=== PATIENT | male | born 1990 | race Caucasian/White ===

== ENCOUNTER 2021-01-30 16:03 | Emergency (ER) | payer OTHER, SELFPAY ==
--- NOTE | ~2021-01-30 | XR_ITS ---
EXAMINATION: XR CHEST CLINICAL INFORMATION: SOB. COMPARISON: None TECHNIQUE: Frontal view of the chest was obtained. FINDINGS: No significant abnormality is noted involving the heart, lungs, mediastinum, bony thorax or soft tissues. XR/XR chest 1V IMPRESSION: Unremarkable chest examination.
[2021-01-30 16:11] VITALS: BP 133/75; PULSE 103; RESP 26; TEMP 37.1; O2SAT 97; BMI 29.8
[2021-01-30] MEDS: Albuterol/Iprat 2.5/0.5MG 3 ML AMPUL.NEB INHALE (16:30)
[2021-01-30 16:32] VITALS: PULSE 104; O2SAT 95
--- NOTE | 2021-01-30 17:02 | PC.NURSE ---
covid swab completed at this time. patient in nad.
--- NOTE | 2021-01-30 17:23 | ED_ITS ---
HPI - URI/Sore Throat General Chief Complaint: Asthma Stated Complaint: Asthma Time Seen by Provider: 01/30/21 16:21 Source: patient Mode of arrival: ambulatory Limitations: no limitations History of Present Illness HPI Narrative: Pleasant 30-year-old male who reports he has history of asthma has been experiencing intermittent exacerbation for over past 4 weeks now and over the past 2 weeks he ran out of his inhaler and has had a dry cough which has continued. States there is no fever however coughing causes significant discomfort and comes in fits with associated dyspnea during episodes however there is no chest pain or shortness of breath on exertion. No lower extremity swelling. No recent travel or known sick contacts. MD elicited complaint: cough Onset (ago): week(s) Consistency: intermittent Severity: moderate Relieving factors: other (Used his 's inhaler helps) Associated symptoms: denies other symptoms Treatments prior to arrival: none Related Data Previous Rx's Medication Instructions Recorded albuterol sulfate 2 puff INHALATION Q4-6H PRN #8.5 g 01/30/21 azithromycin [Zithromax Z-Jonas] 250 mg PO DAILY 5 Days #6 tab 01/30/21 prednisone 60 mg PO DAILY 5 Days #15 tab 01/30/21 Allergies Allergy/AdvReac Type Severity Reaction Status Date / Time albuterol Allergy Unknown RASH Verified 01/30/21 16:07 [From PROVENTIL HFA] brompheniramine Allergy Unknown RASH Verified 01/30/21 16:07 [From DIMETAPP COLD-ALLERGY (PE)] phenylephrine Allergy Unknown RASH Verified 01/30/21 16:07 [From DIMETAPP COLD-ALLERGY (PE)] Review of Systems Review of Systems: Constitutional: No Weight loss, No Fever, No Chills, No Night Sweats, No Fatigue, No Malaise ENT/Mouth: No Hearing loss, No Ear Pain, No Nasal Congestion, No Sinus Pain, No Hoarseness, No sore throat, No Rhinorrhea, No Swallowing Difficulty Eyes: No Eye Pain, No Swelling, No Redness, No Foreign Body, No Discharge, No Vision Changes Cardiovascular: No Chest Pain, No SOB, No Dyspnea on Exertion, No Orthopnea, No Edema, No Palpitations Respiratory: + Cough, No Sputum, + Wheezing, No Dyspnea Gastrointestinal: No Nausea, No Vomiting, No Diarrhea, No Constipation, No abdominal Pain, No Hematochezia, No Melena Genitourinary: No Dysuria, No Urinary Frequency, No Hematuria, No Urinary Incontinence, No Urgency, No Flank Pain, No Urinary Flow Changes, No Hesitancy Musculoskeletal: No joint pain, No Myalgias, No Joint Swelling Skin: No Skin Lesions, No rash Neuro: No Weakness, No Numbness, No Paresthesias, No Loss of Consciousness, No Dizziness, No Headache Psych: No Social Issues Heme/Lymph: No Bruising, No Bleeding,No Lymphadenopathy Endocrine: No Polyuria, No Polydipsia, No Temperature Intolerance Yes all other systems are reviewed and are negative [facility] Past Medical History Medical History Asthma Social History Social History Advance Directives: No Advance Directives Information Provided: No Physical Exam Vital Signs: Vital Signs: Last Vital Signs Temp 98.7 F 01/30/21 16:11 Pulse 104 H 01/30/21 16:32 Resp 26 H 01/30/21 16:11 BP 133/75 01/30/21 16:11 Pulse Ox 97 01/30/21 16:11 Body Mass Index 29.8 Reviewed Const: General: cooperative and healthy appearing; No acute distress or int oxicated appearing Nutritional Appearance: average body habitus Orientation/consciousness: patient oriented x3 HENMT: Head: Yes normal to inspection Ears: hearing grossly normal bilaterally Eyes: General: appearance normal, both eyes and all related structures Visual Roberto: normal visual roberto by confrontation Neck: Neck: Yes normal visual inspection, No positive Brudzinski's sign, No positive Kernig's sign and No tender Thyroid: Thyroid normal Chest: Chest palpation & inspection: normal inspection of the chest Resp: Effort & Inspection: normal respiratory effort Auscultation: wheezes expiratory wheezes (mild forced bilateral ) and upper bilaterally Cardio: Jugular venous distension: no JVD Rhythm: regular rhythm Heart sounds: S1 normal heart sound present and S2 normal heart sound present GI: Palpation (GI): Soft to palpation : General: Yes no CVA tenderness Back/Spine/Pelvis: Back: no CVA tenderness Skin: General skin exam: no rashes or lesions noted Neuro: General: patient oriented x3 Extrem: General: Yes normal to inspection Course Course Course Narrative: Feels better after neb/ cxr neg , influ, rsv, covid. VSS, 100% ra MDM - URI/Sore Throat Differential Diagnosis Differential diagnosis: Likely upper respiratory infection, viral infection and bronchitis; Unlikely croup, otitis media, sinusitis, influenza and pharyngitis Medical Records Attestation: I reviewed the patient's medical records. Lab Data Attestation: I reviewed the patient's lab results. Labs: Lab Results 01/30/21 Range/Units 16:57 Coronavirus (PCR) NEGATIVE (Negative) Influenza Type A (PCR) NEGATIVE (Negative) Influenza Type B (PCR) NEGATIVE (Negative) RSV RNA Qual (PCR) NEGATIVE (Negative) Imaging Data Chest x-ray: Radiologist's impression: [address] [id number] ReportSigned Patient: Trevor Foster#: [id number]: 1990Acct:[id number]/Sex: MADM Date: 01/30/21Loc: EDAttending Dr: Ordering Physician: Lee Pimentel NP Date of Service: 01/30/21 Procedure(s): XR chest 1V Accession Number(s): [id number] cc: Lee Pimentel PLANT SCIENCES PROFESSOR~ EXAMINATION: XR CHEST CLINICAL INFORMATION: SOB. COMPARISON: None TECHNIQUE: Frontal view of the chest was obtained. FINDINGS: No significant abnormality is noted involving the heart, lungs, mediastinum, bony thorax or soft tissues. XR/XR chest 1V IMPRESSION: Unremarkable chest examination. Dictated By:OLGA CORDERO MDSigned By:<Electronically signed by OLGA COREDRO MD in OV>01/30/21 1647 DD/ 1621TD/TT: General Maintenance Engineer: [facility] [place] Discharge Plan Discharge Clinical Impression: Bronchitis Patient Disposition: Home, Self-Care Instructions: Acute Bronchitis (ED) Additional Instructions: Drink plenty fluids Supportive care discussed Take medication prescribed Return if any concerns or worsening symptoms Follow up with her primary care doctor 1 week Today your COVID test was negative, flu test was negative, RSV test was negative Follow-up as instructed Thank you Prescriptions: New azithromycin [Zithromax Z-Jonas] 250 mg tablet 250 mg PO DAILY 5 Days Qty: 6 RF: 0 prednisone 20 mg tablet 60 mg PO DAILY 5 Days Qty: 15 RF: 0 albuterol sulfate 90 mcg/actuation HFA aerosol inhaler 2 puff inhalation Q4-6H PRN (Reason: shortness of breath or wheezing) Qty: 8.5 RF: 0 Referrals: ED Physician,Generic [Physician] - 1 week Discharge Date/Time: 01/30/21 18:36
[2021-01-30 17:55] LABS: Influenza A PCR NEGATIVE (Negative); Influenza B PCR NEGATIVE (Negative); Resp Syncy Virus RNA Qual PCR NEGATIVE (Negative); SARS COV2 PCR INHOUSE NEGATIVE (Negative)
== END 2021-01-30 18:36 | disposition home or self-care (01) ==
PROVIDERS: Nurse Practitioner Primary Care; Emergency Provider Emergency Medicine
DX: J20.9 Acute bronchitis, unspecified (principal); Z20.822 Contact with and (suspected) exposure to COVID-19; J45.909 Unspecified asthma, uncomplicated
CPT/HCPCS: 0241U; 36415; 71045; 94640; 99283; 99284

== ENCOUNTER 2022-03-02 18:09 | Emergency (ER) | payer OTHER, SELFPAY ==
--- NOTE | ~2022-03-02 | XR_ITS ---
EXAMINATION: XR KNEE, RIGHT CLINICAL INFORMATION: Pain and injury. COMPARISON: None TECHNIQUE: Four views of the right knee. FINDINGS: Bones and soft tissues are normal. No fracture or joint effusion. Alignment is anatomic. Joint spaces are well maintained. No abnormal soft tissue calcification. XR/XR knee RT 4V IMPRESSION: Normal right knee.
--- NOTE | ~2022-03-02 | XR_ITS ---
EXAMINATION: XR KNEE, LEFT CLINICAL INFORMATION: Pain. Injury. COMPARISON: None TECHNIQUE: Four views of the left knee. FINDINGS: Bones and soft tissues are normal. No fracture or joint effusion. Alignment is anatomic. Joint spaces are well maintained. No abnormal soft tissue calcification. XR/XR knee LT 4V IMPRESSION: Normal left knee.
--- NOTE | ~2022-03-02 | XR_ITS ---
EXAMINATION: XR HIP, RIGHT CLINICAL INFORMATION: Pain and injury. COMPARISON: None TECHNIQUE: Frontal view of pelvis. Two views of the right hip. FINDINGS: Bones and soft tissues are normal. No fracture. Alignment is anatomic. Hip joint space is maintained. XR/XR hip RT w PEL1V IMPRESSION: Normal right hip.
[2022-03-02 20:44] VITALS: BP 134/91; PULSE 87; RESP 16; TEMP 37.1; O2SAT 98; BMI 29.8
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
[2022-03-02] MEDS: oxyCODONE HCl Immed Release 5 MG TABLET PO (21:47)
== END 2022-03-02 22:43 | disposition home or self-care (01) ==
PROVIDERS: Emergency Provider Emergency Medicine Emergency Medical Services
DX: Z04.1 Encounter for examination and observation following transport accident (principal); M25.561 Pain in right knee; M25.551 Pain in right hip
CPT/HCPCS: 73502; 73564; 99283; 99284

== ENCOUNTER → 2022-03-28 15:24 | Outpatient (BNVA) | payer OTHER, SELFPAY | PROVIDERS: PCP Student in an Organized Health Care Education/Training Program; Visit Provider Physician Assistant | DX: S83.511A Sprain of anterior cruciate ligament of right knee, initial encounter (principal); S83.241A Other tear of medial meniscus, current injury, right knee, initial encounter | CPT/HCPCS: 99202 ==

== ENCOUNTER 2022-04-11 18:41 | Outpatient (REF) | payer OTHER, SELFPAY ==
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
== END 2022-04-11 18:42 | disposition home or self-care (01) ==
LOC: HO.MRI 18:41
PROVIDERS: Visit Provider Physician Assistant
DX: S83.511A Sprain of anterior cruciate ligament of right knee, initial encounter (principal); S83.241A Other tear of medial meniscus, current injury, right knee, initial encounter; X58.XXXA Exposure to other specified factors, initial encounter; Y93.9 Activity, unspecified; Y92.9 Unspecified place or not applicable; Y99.9 Unspecified external cause status
CPT/HCPCS: 73721

== ENCOUNTER → 2022-04-19 11:03 | Outpatient (BNVA) | payer OTHER, SELFPAY | PROVIDERS: PCP Student in an Organized Health Care Education/Training Program; Visit Provider Orthopaedic Surgery | DX: S83.249D Other tear of medial meniscus, current injury, unspecified knee, subsequent encounter (principal); S83.511D Sprain of anterior cruciate ligament of right knee, subsequent encounter | CPT/HCPCS: 99212 ==

== ENCOUNTER 2022-04-25 10:01 | Day surgery (SDC) | payer OTHER, SELFPAY ==
--- NOTE | 2022-04-24 08:10 | HO.ANESPROP2 ---
Documented by User: Zita Bob NP 04/24/22 08:11 HPI - Anesthesia Eval Consult details Narrative: 31yo M for Right ACL Allograft [facility] Active Problems Active Problems: All Active Problems (Updated 03/28/22 @ 15:57 by Yashira Roblero PA-C) Tear of medial meniscus of knee (Acute) Complete tear of right ACL (Acute) Past Medical History Medical History Asthma Social History Social History (Updated 03/28/22 @ 15:35 by NIMISHA Hollis) Patient Tobacco Use Status: Former Tobacco user Advance Directives: No Advance Directives Information Provided: Yes Current occupational status: employed Current occupation: fork charter driver/ rt hand Meds Allergies Allergy/AdvReac Type Severity Reaction Status Date / Time albuterol Allergy Unknown RASH Verified 03/28/22 15:33 [From PROVENTIL HFA] brompheniramine Allergy Unknown RASH Verified 03/28/22 15:33 [From DIMETAPP COLD-ALLERGY (PE)] phenylephrine Allergy Unknown RASH Verified 03/28/22 15:33 [From DIMETAPP COLD-ALLERGY (PE)] Exam Exam Date and Time: April 24, 2022 0810 Assessment and Plan Assessment Anesthesia Assessment: Chart Reviewed Documented by User: Rachid Patterson MD 04/25/22 17:49 [facility] Past Medical History Medical History Asthma Family History Family history of problems with anesthesia: No Surgical History History of Problems with Anesthesia: No Social History Social History (Updated 03/28/22 @ 15:35 by NIMISHA Hollis) Patient Tobacco Use Status: Former Tobacco user Advance Directives: No Advance Directives Information Provided: Yes Current occupational status: employed Current occupation: fork charter driver/ rt hand Meds Allergies Allergy/AdvReac Type Severity Reaction Status Date / Time albuterol Allergy Unknown RASH Verified 03/28/22 15:33 [From PROVENTIL HFA] brompheniramine Allergy Unknown RASH Verified 03/28/22 15:33 [From DIMETAPP COLD-ALLERGY (PE)] phenylephrine Allergy Unknown RASH Verified 03/28/22 15:33 [From DIMETAPP COLD-ALLERGY (PE)] Exam Airway Mallampati Class: III TM Dist: >3cm Neck ROM: Full Loose/Missing/Broken Teeth: Yes (Chipped teeth ) Heart: S1 , S2 Lungs: b/l breath sounds Assessment and Plan Assessment Anesthesia Assessment: Anesthesia Plan Discussed Final Anesthetic Review Family History of Problems with Anesthesia: No History of Problems with Anesthesia: No NPO: Yes ASA Class: II Final Preanesthetic Review: Meds/Allgs Chart Reviewed, Consent Obtained/Reviewed and Anes Risks/Benef Reviewed Patient Risk: Intermediate Procedure Risk: Intermediate Anesthetic Plan Anesthetic Plan: GA and Regional Block Disposition: Standard PACU
[2022-04-25] VITALS (8 sets, daily range): BP systolic 125–147; BP diastolic 79–94; PULSE 72–93; RESP 16–19; TEMP 36.2–36.7; O2SAT 93–98; BMI 29.8
[2022-04-25] MEDS: Lactated Ringers 1,000 ML 100 ML IVCONT (10:57)
--- NOTE | 2022-04-25 13:57 | MHC.SHP ---
Pre-Procedural Eval Section A Date of Service: 04/25/22 The patient is an INPATIENT: No Changes since office visit: Yes Patient answered all questions; No Cold of Flu in the past 2 weeks, No New Medical Problems and No Changes in Medication The History & Physical has been completed within 30 days and I have reviewed it.: Yes Section B Chief Complaint: Sprain of anterior cruciate ligament of right knee Allergies: Allergies Allergy/AdvReac Type Severity Reaction Status Date / Time albuterol Allergy Unknown RASH Verified 03/28/22 15:33 [From PROVENTIL HFA] brompheniramine Allergy Unknown RASH Verified 03/28/22 15:33 [From DIMETAPP COLD-ALLERGY (PE)] phenylephrine Allergy Unknown RASH Verified 03/28/22 15:33 [From DIMETAPP COLD-ALLERGY (PE)] Plan I have reviewed the history and physical and performed a pertinent physical examination on my patient. No changes have occurred unless specified.
--- NOTE | 2022-04-25 15:22 | P.BOP_ITS ---
Brief Operative Note Date of Service: 04/25/22 Pre-op diagnosis: Right ACL tear Post-op diagnosis: other (Right ACL tear with medial and lateral meniscus tear) Procedure: Right knee ACL reconstruction with allograft and Partial lateral and medial meniscectomy Surgeon: Seth Emmanuel MD Anesthesia: GETA and regional Was an Gas Station Operator used for this Procedure?: Yes Gas Station Operator: Emmy Erazo Estimated blood loss (mL): 20 Tourniquet time (min): 75 IV fluids (mL): 1,000 Pathology: none sent Condition: stable Disposition: PACU
[2022-04-25] MEDS: Acetaminophen 325 MG TABLET 650 MG PO (16:26)
[2022-04-25] MEDS: oxyCODONE HCl Immed Release 5 MG TABLET PO (16:27)
--- NOTE | 2022-04-27 15:19 | W.PM.OPN ---
Operative Note Operative Note Date of Service: 04/25/22 Narrative: Date of Service: 04/25/22 Pre-op diagnosis: Right ACL tear Post-op diagnosis: other (Right ACL tear with medial and lateral meniscus tear) Procedure: Right knee ACL reconstruction with allograft and Partial lateral and medial meniscectomy Surgeon: Seth Emmanuel MD Anesthesia: GETA and regional Was an Director Child Development Center used for this Procedure?: Yes Director Child Development Center: Emmy Erazo Estimated blood loss (mL): 20 Tourniquet time (min): 75 IV fluids (mL): 1,000 Pathology: none sent Condition: stable Disposition: PACU Indications: This is a 31-year-old gentleman with a full-thickness ACL tear with medial and lateral meniscal tearing was consented to undergo ACL reconstruction. Procedure in detail: Patient was brought to the operating room and placed supine on the surgical table. He was prepped and draped in standard sterile fashion and a time out was called to indentify proper site, proper procedure and IV antibiotics per weight were administered. On exam under anesthesia he had a markedly positive pivot shift. I began by exsanguinating the limb and insufflating tourniquet to 300 mm Hg. Then made a standard anterolateral stab incision. knee was insufflated with water and 30 degree arthroscope was placed. There was grade 1 fibrillations of the patella but overall suprapatellar pouch was plane and the gutters were clean. I descended into the medial compartment where I made my far medial portal under direct visualization. There was obvious old bucket handle tear of the body and posterior horn of the medial meniscus. The bucket-handle itself had been resorbed and what remained was a thin peripheral portion of the meniscus approximately 30% of the meniscal volume. I debrided this down with a shaver. There were no cartilage changes in the medial compartment. There was an empty wall sign in the notch laterally. I examined the lateral compartment. There was a longitudinal split tear in the body of the lateral meniscus without instability. I debrided these flaps down to stable edges. This tear was chronic as well and I removed approximately 30% of the meniscal volume laterally. There were no cartilage changes in the lateral compartment. I then returned to the not tried performed a notchplasty and removed the remaining fibers of the ACL and meniscal fragments. Once this was done I drilled my femoral tunnel using a 7 mm guide off the posterior wall and via the far medial portal. I measured a depth of 35 mm and drilled a femoral tunnel of 25 using a 10 mm Reamer and the final 10 with a 4.5 mm drill. The allograft was opened and prepared on the back table at this time. I then selected an anatomic tibial tunnel and using a 55 mm tibial drill while in flexion drilled the tibial tunnel after making a small incision just medial to the tibial tubercle. Once the graft was repaired on the back table I pulled this through the tibia and then the femur using free suture. I then flipped the button on the femoral cortex and cycled the knee a dozen times. Then while in hyper extension and while applying traction to the graft and posterior pressure to the tibial tubercle I placed 1 10 milimeter interference screw into the tibial tunnel. I then examined the graft. I had good low graft position and there was no pivot shift on examination. There was no impingement. I then removed all extraneous instrumentation. Cut my sutures and irrigated copiously. Absorbable suture and skin glue were then used to close the wounds and the patient was placed in a hinged knee brace with 0-15 degrees of motion. He was then extubated and brought recovery room stable condition. There were no known complications.
== END 2022-04-25 18:18 | disposition home or self-care (01) ==
LOC: HO.SSS 10:02
PROVIDERS: Visit Provider Orthopaedic Surgery
PROC: (CPT 27428; principal; 2022-04-25 12:20)
DX: S83.511A Sprain of anterior cruciate ligament of right knee, initial encounter (principal); S83.231A Complex tear of medial meniscus, current injury, right knee, initial encounter; S83.281A Other tear of lateral meniscus, current injury, right knee, initial encounter; V89.2XXA Person injured in unspecified motor-vehicle accident, traffic, initial encounter; Y93.89 Activity, other specified; Y92.9 Unspecified place or not applicable; Y99.8 Other external cause status; J45.909 Unspecified asthma, uncomplicated; Z79.899 Other long term (current) drug therapy; Z87.891 Personal history of nicotine dependence; Z88.8 Allergy status to other drugs, medicaments and biological substances
CPT/HCPCS: 29880; 29888; C1713; C1769; J0171; J0690; J1100; J1170; J2250; J2405; J2795; J3010

== ENCOUNTER 2022-05-03 07:13 | Outpatient (RCR) | payer OTHER, SELFPAY | END 2022-07-06 09:03 | disposition home or self-care (01) | LOC: HO.PT 07:13 | PROVIDERS: Visit Provider Physician Assistant | DX: S83.511A Sprain of anterior cruciate ligament of right knee, initial encounter (principal); Z98.890 Other specified postprocedural states ==

== ENCOUNTER → 2022-05-03 15:34 | Outpatient (BNVA) | payer OTHER, SELFPAY | PROVIDERS: Visit Provider Physician Assistant | DX: S83.241A Other tear of medial meniscus, current injury, right knee, initial encounter (principal); S83.511A Sprain of anterior cruciate ligament of right knee, initial encounter | CPT/HCPCS: 99212 ==

== ENCOUNTER 2022-06-19 11:00 | Outpatient (RCR) | payer OTHER, SELFPAY ==
--- NOTE | 2022-05-14 11:51 | MHC.PT.EP ---
[facility] [place] Office [employer] Office [place] Office [address] Keyur Wilder [address] [phone] F: [phone] F: [phone] F: [phone] F: [phone] Physical Therapy Plan of Care Date of Evaluation: Date of Surgery: 04/25/22 Diagnosis: R ACL allograft repair and partial medial and lateral meniscectomy on 04/25 ([facility]) Assessment: pt presents to physical therapy with pain, decreased range of motion, decreased strength, impaired functional mobility, impaired postural awareness, and gait deviations. pt is a good candidate for skilled PT due to age, potential remediation of impairments, typical disease/condition progression and prognosis, comorbidities, and motivation. pt would benefit from tailored strengthening and stretching exercise program, functional training, gait training, postural re-training, neuromuscular re-education, modalities as needed for pain, equipment safety demonstration. Frequency and Duration: The patient will be seen 2x/wk for 10 wks Short Term Goals: pt will be I w/ HEP to promote self-management of condition. pt will improve R knee extension to 0 degrees to remediate gait impairments on even ground. pt will improve R knee quad strength to at least 4-/5 to assist in stair navigation. Chest Painting And Sealing Supervisor Goals: pt will report a statistically significant improvement in self-reported outcome measure, LEFI, to promote return to PLOF. pt will demo proper squat mechanics w/ no verbal cueing to promote neutral knee w/ picking up objects from floor. Treatment Plan: Modalities to reduce pain, spasms and effusion. Manual therapy to restore motion and function. Therapeutic exercise to improve strength and flexibility. Neuromuscular re-education for posture and balance. Therapeutic activities to return to functional activities of daily living. Electronically signed by: Fabiola Bo PT, DPT Please sign and return to therapist. Thank you for your referral.
--- NOTE | 2022-07-05 12:52 | MHC.PT.DC ---
[facility] [place] Office [place] Office [place] Office [address] Keyur Wilder 140 [facility] [phone] F: [phone] F: [phone] F: [phone] F: [phone] Physical Therapy Discharge Report Diagnosis: R ACL allograft repair and partial medial and lateral meniscectomy on 04/25 (RC) Date of Surgery: 04/25/22 Date of Evaluation: 05/14/22 Date of Discharge: 07/05/22 Treatments to Date: 10 Cancellations to Date: 1 No Shows to Date: 6 Discharge Status: Visit Non-compliance Discharge Summary: The patient has no showed a total of 6 visits. Per [facility] Core Therapy policy he is being discharged for visit non-compliance. Per last treatment note: Pt chandrakant increased dynamic/balance activities w/o px and N sstability demonstrated . No px w/Eliptical x 15 min. Electronically signed by: Fabiola Bo PT, DPT Please sign and return to therapist. Thank you for your referral.
== END 2022-07-05 12:53 | disposition home or self-care (01) ==
LOC: HO.PT 11:00
PROVIDERS: Visit Provider Physician Assistant
DX: S83.511A Sprain of anterior cruciate ligament of right knee, initial encounter (principal); S83.241A Other tear of medial meniscus, current injury, right knee, initial encounter
CPT/HCPCS: 97110; 97150; 97162; 97530

== ENCOUNTER 2022-06-28 13:33 | Emergency (ER) | payer OTHER, SELFPAY ==
[2022-06-28 14:35] VITALS: BP 128/83; PULSE 87; RESP 18; TEMP 37; O2SAT 96; BMI 32.3
--- NOTE | 2022-06-28 16:18 | ED_ITS ---
HPI - General Adult General Chief complaint: Eye Problems Stated complaint: r eye swollen red l eye itchy Time Seen by Provider: 06/28/22 16:11 Source: patient Mode of arrival: ambulatory Limitations: no limitations History of Present Illness HPI narrative: 31-year-old male presents to ED for bilateral red eyes with green discharge. Patient states 2 of his nephews had pinkeye with green discharge and now he is h aving symptoms. Patient denies any change in vision, eye pain, recent trauma to the eyes. Patient denies any contact use. Related Data Previous Rx's Medication Instructions Recorded ibuprofen 800 mg tablet 800 mg PO TID PRN pain 1 month #90 04/25/22 tabs oxycodone-acetaminophen 5 mg-325 1 tab PO Q4-6H PRN pain 7 days #42 04/25/22 mg tablet (Percocet) tabs sulfamethoxazole 800 1 tab PO BID 7 days #14 tabs 05/28/22 mg-trimethoprim 160 mg tablet (Bactrim DS) erythromycin 5 mg/gram (0.5 %) eye 0.5 inch ophthalmic (eye) QID 7 06/28/22 ointment days #3.5 grams Allergies Allergy/AdvReac Type Severity Reaction Status Date / Time albuterol Allergy Unknown RASH Verified 06/28/22 14:35 [From PROVENTIL HFA] brompheniramine Allergy Unknown RASH Verified 06/28/22 14:35 [From DIMETAPP COLD-ALLERGY (PE)] phenylephrine Allergy Unknown RASH Verified 06/28/22 14:35 [From DIMETAPP COLD-ALLERGY (PE)] Review of Systems Review of Systems: Red eyes, tearing, with green discharge Yes all other systems are reviewed and are negative [facility] Past Medical History Medical History Asthma Social History Social History Patient Tobacco Use Status: Former Tobacco user Advance Directives: No Advance Directives Information Provided: No Current occupational status: previously employed Current occupation: fork fork lift technician/ rt hand Physical Exam ED Vital Signs: Vital Signs - 24 hr 06/28/22 14:35 Temperature 98.6 F Pulse Rate 87 Respiratory Rate 18 Blood Pressure 128/83 Pulse Oximetry 96 Oxygen Delivery Method Room Air BMI result Body Mass Index 32.3 Const General: cooperative, healthy appearing, comfortable, no acute distress, well developed, alert, awake and Physically active Orientation/consciousness: patient oriented x3 [facility] Head: Yes normal to inspection, Yes No palpable skull fracture present, Yes normocephalic, Yes atraumatic and No abrasion Eyes Other: Bilateral eyes with conjunctival/scleral erythema with green discharge. Negative for photophobia or nystagmus. Negative for globe tenderness. Negative for abrasions. Both eyes visual acuity is 20/20 Neck Neck: Yes normal visual inspection, Yes full ROM, Yes no lymphadenopathy, Yes no meningeal signs, Yes trachea midline, Yes supple, No anterior neck swelling and No tender Chest Chest palpation & inspection: normal inspection of the chest and normal palpation of entire chest wall Resp Effort & Inspection: normal respiratory effort and able to speak in complete sentences Auscultation: clear to auscultation bilaterally Cardio Jugular venous distension: no JVD Heart sounds: S1 normal heart sound present and S2 normal heart sound present GI Inspection: Yes normal to inspection and No abdominal wall ecchymosis Palpation (GI): Soft to palpation, not firm, nontender, no guarding and not rigid General: No CVA tenderness and Yes no CVA tenderness Back/Spine/Pelvis Back: no CVA tenderness, No CVA tenderness and No back tenderness Skin General skin exam: no rashes or lesions noted and elasticity normal Neuro General: patient oriented x3, gait normal, no meningeal signs and CN's II-XI intact bilaterally Extrem General: Yes normal to inspection and Yes full ROM Psych Appearance: grossly normal, well kempt and not disheveled Course Course Course Narrative: History physical exam indicate bacterial conjunctivitis. Medical Decision Making [facility] Narrative Medical decision making narrative: Bacterial conjunctivitis Discharge Plan Discharge Clinical Impression: Bacterial conjunctivitis Patient Disposition: Home, Self-Care Instructions: Conjunctivitis (ED) Additional Instructions: Return to the ED immediately for loss or change in vision, headache, loss of visions, nausea, vomitting, or any other concerning symptoms. Please follow up with pCP and opthmoatolgist Prescriptions: New erythromycin 5 mg/gram (0.5 %) ointment 0.5 inch ophthalmic (eye) QID 7 Days Qty: 3.5 0RF Rx Instructions: Placed in both eyes No Action oxycodone-acetaminophen [Percocet] 5-325 mg tablet 1 tab PO Q4-6H PRN (Reason: pain) 7 Days Qty: 42 0RF ibuprofen 800 mg tablet 800 mg PO TID PRN (Reason: pain) 30 Days Qty: 90 0RF sulfamethoxazole-trimethoprim [Bactrim DS] 800-160 mg tablet 1 tab PO BID 7 Days Qty: 14 0RF Referrals: Derick Greene [Physician] - (bilateral bacterial conjuctivitis) Stand Alone Forms: Work/School Release Interventions: ED Discharge Assessment Last Done: 06/28/22 17:28 Discharge Date/Time: 06/28/22 17:29 Print Language: Lithuanian
== END 2022-06-28 17:29 | disposition home or self-care (01) ==
PROVIDERS: Emergency Provider Internal Medicine
DX: H10.31 Unspecified acute conjunctivitis, right eye (principal); Z79.899 Other long term (current) drug therapy; Z87.891 Personal history of nicotine dependence
CPT/HCPCS: 99282; 99283

== ENCOUNTER → 2022-10-19 09:50 | Outpatient (BNVA) | payer MEDICAID, SELFPAY | PROVIDERS: Visit Provider Physician Assistant | DX: S83.511D Sprain of anterior cruciate ligament of right knee, subsequent encounter (principal); S83.241D Other tear of medial meniscus, current injury, right knee, subsequent encounter | CPT/HCPCS: 99212 ==

== ENCOUNTER 2022-12-21 09:36 | Outpatient (REF) | payer MEDICAID, SELFPAY | END 2022-12-21 09:37 | disposition home or self-care (01) | LOC: HO.HOSX 09:36 | PROVIDERS: Visit Provider Orthopaedic Surgery | DX: Z13.89 Encounter for screening for other disorder (principal) ==

== ENCOUNTER 2024-03-24 13:11 | Outpatient (REF) | payer MEDICAID, SELFPAY ==
--- NOTE | ~2024-03-24 | XR_ITS ---
EXAMINATION: XR FOOT, LEFT CLINICAL INFORMATION: Pt stated a week ago has had pain dorsal aspect of left foot and noticed a bump, unable to recall any injury. COMPARISON: None available. TECHNIQUE: AP, lateral, and oblique views of the left foot. FINDINGS: The bones and soft tissues are normal. No fracture. Alignment is anatomic. Joint spaces are maintained. No radiopaque foreign body. XR/XR foot LT min 3V IMPRESSION: Normal left foot.
== END 2024-03-24 13:12 | disposition home or self-care (01) ==
LOC: HO.HHCX 13:11
PROVIDERS: Visit Provider Nurse Practitioner Family
DX: M79.672 Pain in left foot (principal)
CPT/HCPCS: 73630

== ENCOUNTER 2025-11-10 08:55 | Outpatient (REF) | payer MEDICAID, SELFPAY ==
--- NOTE | ~2025-11-10 | XR_ITS ---
Examination: 5 view x-ray of lumbar spine. TECHNIQUE: AP, lateral, lateral spot, and bilateral oblique views lumbar spine COMPARISON: None INDICATION: Chronic low back pain radiating to right leg FINDINGS: There are vestigial ribs at T12. There are 5 non-rib bearing lumbar segments. Vertebral body height and alignment is preserved. There is mild superior endplate wedging of T11. L4-L5: There is grade 1 anterolisthesis and likely a unilateral pars and articularis defect on the right side. There is mild disc space narrowing. Vertebral body height and alignment and disc spaces are preserved otherwise. XR/XR lumbar spine 4V min IMPRESSION: L4-5 demonstrates grade 1 anterolisthesis and mild disc space narrowing with probable unilateral chronic right pars intra-articularis defect. Mild superior endplate wedging of T11 is probably physiologic in nature, though mild compression fracture is not ruled out. Electronically signed by: Kwame Palma MD 11/10/2025 09:49 AM ROBERTO
[2025-11-10 12:38] LABS: Alanine Aminotransferase 23 U/L (0-40); Albumin Level 4.5 g/dL (3.5-5.0); Alkaline Phosphatase 70 U/L (39-117); Anion Gap 7 (12-20); Aspartate Amino Transferase 26 U/L (5-37); Blood Urea Nitrogen 13 mg/dL (9-16); Calcium 8.7 mg/dL (8.4-10.2); Carbon Dioxide 27 mmol/L (22-29); Chloride 108 mmol/L (96-108); Cholesterol 146 mg/dL (<200); Estimated Glomerular Filt Rate > 60; HDL Cholesterol 44 mg/dL (>40); Potassium 4.3 mmol/L (3.3-5.1); Sodium 138 mmol/L (135-145); Total Protein 6.9 g/dL (6.5-8.0); Triglycerides 52 mg/dL (<150)
== END 2025-11-10 08:56 | disposition home or self-care (01) ==
LOC: HO.HHCX 08:55
PROVIDERS: PCP Internal Medicine Geriatric Medicine; Visit Provider Internal Medicine Geriatric Medicine
DX: Z13.220 Encounter for screening for lipoid disorders (principal); Z13.1 Encounter for screening for diabetes mellitus; M54.41 Lumbago with sciatica, right side; G89.29 Other chronic pain
CPT/HCPCS: 36415; 72110; 80053; 80061

== ENCOUNTER → 2025-11-10 09:11 | Outpatient (BNV) | payer MEDICAID, SELFPAY | PROVIDERS: PCP Internal Medicine Geriatric Medicine; Visit Provider Radiology Diagnostic Radiology | DX: M48.061 Spinal stenosis, lumbar region without neurogenic claudication (principal) | CPT/HCPCS: 72110 ==